=== PATIENT | male | born 1960 | race Caucasian/White ===

== ENCOUNTER 2019-11-04 13:36 | Outpatient (CLI) | payer MEDICARE, MEDICAID, SELFPAY ==
--- NOTE | ~2019-11-04 | CT_ITS ---
EXAMINATION: CT lung screening DATE: 11/04/2019 14:02 INDICATION: Personal history of tobacco dependence, current smoker with 45 pack year history TECHNIQUE: Computed tomography (CT) of the chest was performed without intravenous contrast. The dose -length product (DLP) was 76.03 mGy-cm. Automated exposure control and iterative reconstruction techn [employer] were employed. COMPARISON: None FINDINGS: There is a 5 mm nodule of the right lower lobe on image 92. There is a 4 mm subpleural nodu le of the left lower lobe on image 68. Mild emphysema is noted. The lungs are free of acute opacities . There is no pleural effusion or pneumothorax. No pathologically enlarged thoracic lymph nodes are i dentified. The heart size is normal. Calcified coronary artery atherosclerosis is noted. There are al so coronary artery stents. There is mild thoracic spondylosis. IMPRESSION: 1. Lung-RADS category 2: Benign appearance or behavior. Continue annual screening with noncontrast lo w-dose chest CT in 12 months. Reviewed, dictated and finalized at location A. IMPRESSION: 1. Lung-RADS category 2: Benign appearance or behavior. Continue annual screeni ng with noncontrast low-dose chest CT in 12 months.
== END 2019-11-04 13:37 | disposition home or self-care (01) ==
PROVIDERS: PCP Emergency Medicine; Visit Provider Emergency Medicine
DX: Z12.2 Encounter for screening for malignant neoplasm of respiratory organs (principal); Z87.891 Personal history of nicotine dependence
CPT/HCPCS: G0297

== ENCOUNTER 2020-04-16 12:26 | Outpatient (CLI) | payer MEDICARE, MEDICAID, SELFPAY ==
--- NOTE | 2020-04-16 15:00 | NEURO_ITS ---
Impression: # Known diabetic complains of hand weakness. # Neuropathy of axonal type. 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 # Abnormal needle/EMG exam. Nerve Conduction Studies Anti Sensory Summary Table Stim Site NR Peak (ms) P-T Amp (?V) Site1 Site2 Delta-P (ms) Dist (cm) Sinan (m/s) Left Median Anti Sensory (2-3nd Digit) Wrist 4.7 23.9 Wrist 2-3nd Digit 4.7 14.0 30 Wrist 5.1 33.2 Wrist 2-3nd Digit 4.7 14.0 30 Right Median Anti Sensory (2-3nd Digit) Wrist 5.9 7.8 Wrist 2-3nd Digit 5.9 14.0 24 Wrist 5.0 12.4 Wrist 2-3nd Digit 5.9 14.0 24 Left Radial Anti Sensory (Base 1st Digit) Wrist 4.2 15.5 Wrist Base 1st Digit 4.2 0.0 Right Radial Anti Sensory (Base 1st Digit) NO RESPONSE Wrist NR Wrist Base 1st Digit 0.0 Left Ulnar Anti Sensory (5th Digit) Wrist 3.0 9.8 Wrist 5th Digit 3.0 14.0 47 Right Ulnar Anti Sensory (5th Digit) NO RESPONSE Wrist NR Wrist 5th Digit 14.0 Motor Summary Table Stim Site NR Onset (ms) O-P Amp (mV) Site1 Site2 Delta-0 (ms) Dist (cm) Sinan (m/s) Left Median Motor (Abd Poll Brev) Wrist 4.6 3.8 Elbow Wrist 6.4 29.0 45 Elbow 11.0 3.3 Right Median Motor (Abd Poll Brev) Wrist 4.8 3.6 Elbow Wrist 5.8 30.0 52 Elbow 10.6 3.6 Left Ulnar Motor (Abd Dig Minimi) Wrist 4.5 0.3 A Elbow Wrist 7.5 30.0 40 A Elbow 12.0 0.2 Right Ulnar Motor (Abd Dig Minimi) Wrist 4.8 0.8 A Elbow Wrist 10.1 30.0 30 A Elbow 14.9 0.4 F Wave Studies NR F-Lat (ms) L-R F-Lat (ms) Left Median (Mrkrs) (Abd Poll Brev) 30.98 0.71 Right Median (Mrkrs) (Abd Poll Brev) 31.69 0.71 Left Ulnar (Mrkrs) (Abd Dig Min) 26.49 0.00 Right Ulnar (Mrkrs) (Abd Dig Min) 26.49 0.00 EMG Side Muscle Nerve Root Ins Act Fibs Amp Dur Recrt Comment Right 1stDorInt Ulnar C8-T1 Nml 2+ Decr >12ms Reduced Right Ext Indicis Radial (Post Int) C7-8 Nml Nml Nml Nml Nml Right Ext Digitorum Radial (Post Int) C7-8 Nml Nml Nml Nml Nml Right BrachioRad Radial C5-6 Nml Nml Nml Nml Nml Right PronatorTeres Median C6-7 Nml Nml Nml Nml Nml Right Abd Poll Brev Median C8-T1 Nml Nml Nml Nml Nml Left 1stDorInt Ulnar C8-T1 Nml 2+ Decr >12ms Reduced Left Ext Indicis Radial (Post Int) C7-8 Nml Nml Nml Nml Nml Left Ext Digitorum Radial (Post Int) C7-8 Nml Nml Nml Nml Nml Left BrachioRad Radial C5-6 Nml Nml Nml Nml Nml Left PronatorTeres Median C6-7 Nml Nml Nml Nml Nml Left Abd Poll Brev Median C8-T1 Nml Nml Nml Nml Nml Right ABD Dig Min Ulnar C8-T1 Nml 2+ Decr >12ms Reduced Left ABD Dig Min Ulnar C8-T1 Nml 2+ Decr >12ms Reduced MTDD
== END 2020-04-16 12:27 | disposition home or self-care (01) ==
PROVIDERS: PCP Emergency Medicine; Visit Provider Psychiatry & Neurology Neurology
DX: G62.9 Polyneuropathy, unspecified (principal)
CPT/HCPCS: 95886; 95911

== ENCOUNTER 2020-12-02 10:26 | Outpatient (CLI) | payer MEDICARE, MEDICAID, SELFPAY ==
[2020-12-02 16:59] LABS: Creatinine Urine 73.2 mg/dL
[2020-12-02 17:01] LABS: Alanine Aminotransferase 11 U/L (4-50); Alkaline Phosphatase 89 U/L (38-126); Anion Gap 10 mmol/L (8-16); Aspartate Amino Transferase 21 U/L (17-59); Bilirubin,Total 0.5 mg/dL (0.2-1.3); Blood Urea Nitrogen 22 mg/dL (9-20); Calcium 9.6 mg/dL (8.4-10.2); Carbon Dioxide 27 mmol/L (22-30); Chloride 103 mmol/L (98-107); Estimated Glomerular Filt Rate 52; Glucose 130 mg/dL (65-110); Potassium 4.6 mmol/L (3.4-5.0); Sodium 140 mmol/L (137-145)
[2020-12-02 17:16] LABS: Microalbumin Urine Random < 6.0 mg/L (0-16.7)
[2020-12-02 17:17] LABS: MALB Creatinine Ratio < 8.2 mg/g (0-30)
[2020-12-02 17:19] LABS: Free T4 Free Thyroxine 1.45 ng/mL (0.78-2.19)
== END 2020-12-02 10:27 | disposition home or self-care (01) ==
LOC: ANHWCLAB 10:30
PROVIDERS: PCP Emergency Medicine; Visit Provider Internal Medicine Endocrinology, Diabetes & Metabolism
DX: E10.42 Type 1 diabetes mellitus with diabetic polyneuropathy (principal)
CPT/HCPCS: 36415; 80053; 82043; 84439; 84443

== ENCOUNTER → 2021-03-06 02:00 | Outpatient (CLI) | payer MEDICARE, MEDICAID, SELFPAY ==
[2021-03-06 18:07] LABS: SARS-CoV-2 RNA PCR Negative
== END ==
PROVIDERS: PCP Emergency Medicine; Visit Provider Internal Medicine Gastroenterology
DX: Z01.812 Encounter for preprocedural laboratory examination (principal); Z20.822 Contact with and (suspected) exposure to COVID-19
CPT/HCPCS: C9803; U0003; U0005

== ENCOUNTER 2021-03-10 00:33 | Day surgery (SDC) | payer MEDICARE, MEDICAID, SELFPAY ==
[2021-02-19 11:50] VITALS: BMI 21.2
--- NOTE | 2021-03-09 10:32 | WPDANESEPPF ---
Anes - Initial Pre Proc Eval Procedure: Operation Date: 03/10/21 08:30 Proposed Procedures p Esophagogastroduodenoscopy - Estiven Patel MD Date/Time: 03/09/21 10:32 Surgeon: Estiven Patel MD Pre Op Diagnosis: owens's esophagus, GERD Patient Data Age: 60 Gender: M Height: 1.78 m Weight: 67 kg Allergies Allergy/AdvReac Type Severity Reaction Status Date / Time morphine Allergy Mild hives Verified 03/10/21 07:41 codeine Allergy Unknown hives Verified 03/10/21 07:41 Home Medications Medication Instructions Recorded Confirmed Type blood-glucose meter,continuous #1 each 09/23/19 02/03/21 History blood-glucose sensor #9 each 01/27/20 02/03/21 Rx Contour Next Test Strips #400 ea NS 05/04/20 02/03/21 Rx pen needle, diabetic 31 gauge x #500 ea 06/08/20 02/03/21 Rx 5/16 insulin aspart U-100 100 unit/mL 2 - 8 unit SUBCUT .COMPLEX 90 Days 12/24/20 02/19/21 Rx (3 mL) subcutaneous pen #10 syr insulin glargine 100 unit/mL (3 21 unit SUB-Q QAM 90 Days #10 syr 12/24/20 02/19/21 Rx mL) subcutaneous pen lansoprazole 30 mg delayed 30 mg PO BID #60 tablet 02/03/21 02/19/21 Rx release,disintegrating tablet aspirin 81 mg PO DAILY PRN 02/19/21 02/19/21 History hydromorphone [Dilaudid] 4 mg PO BID PRN 03/10/21 03/10/21 History Patient hx anesthesia problems: none Family hx anesthesia problems: none Results Review: All pre-operative results and documents have been reviewed as part of the pre-operative evaluation. COUNTS INCLUDE 234 BEDS AT THE [facility] Past Medical History Medical History (Updated 03/09/21 @ 10:33 by Kapil Uribe DO) Acquired cataract Owens's esophagus Chronic, continuous use of opioids PO dilaudid Diabetes mellitus GERD (gastroesophageal reflux disease) History of heart attack 2004 Tobacco abuse Type 1 diabetes mellitus with diabetic polyneuropathy, with long-term current use of insulin Surgical History Surgical History H/O heart artery stent 2005 History of hernia repair as a baby Family History Family History Father Diabetes mellitus Other Family history of arthritis Family history of congestive heart failure Social History Social History (Updated 02/03/21 @ 13:55 by Brenna Oakley CMA) Smoking packs per day: 1 Smoking cigarettes per day: 20.0 Years smoked: 45 Smoking pack-years: 45.00 Smoking status: Current every day smoker Tobacco type: cigarettes Alcohol intake: never Substance use: current Substance use type: marijuana Last use: 02/19/21 Living arrangements: alone Gender identity (if verbalized by the patient): Male Spiritual care concerns: No Anes - Eval Final PreProcedure Day of Procedure 03/09/21 10:32 Patient weight: normal Heart: regular rate and rhythm Lungs: clear to auscultation and normal air movement Airway: Mallampati scale class II Neurological: alert and oriented Last oral intake: >/= 8 hours ASA classification: III Emergent: no Anesthetic plan: proceed Anesthesia type and monitoring: general GIVS and standard monitoring Results Review: All pre-operative results and documents have been reviewed as part of the pre-operative evaluation. Informed Consent: The patient's anesthetic plan and its attendant risks and benefits were discussed with the patient/family/POA. Questions were solicited and answers provided to the satisfaction of the patient/family/POA.
[2021-03-10 07:43] VITALS: BP 145/79; PULSE 73; RESP 20; TEMP 36.3; O2SAT 99; BMI 21.2
[2021-03-10 07:54] LABS: Glucose Point of Care 245 mg/dl (65-105)
[2021-03-10] MEDS: LACTATED RINGERS 1,000 ML 150 ML IV CONT (08:02)
--- NOTE | 2021-03-10 08:18 | WPDGICN ---
Assessment and Plan Assessment and plan (1) GERD (gastroesophageal reflux disease): Code(s): K21.9 - Gastro-esophageal reflux disease without esophagitis Status: Acute Assessment and Plan: Patient with chronic GE reflux disease appears to be of controlled with lansoprazole 30mg p.o. b.i.d. anticipate keeping this medication long-term along with anti-reflux measures including elevating head of bed at night no late snacks and bland foods. (2) Soria's esophagus: Code(s): K22.70 - Soria's esophagus without dysplasia Status: Acute Assessment and Plan: Patient with previous diagnosis of Soria's esophagus plan is for PPI therapy to continue. Surveillance EGD is anticipated 3 year intervals. (3) Dysphagia: Code(s): R13.10 - Dysphagia, unspecified Status: Acute Assessment and Plan: Patient complains of difficulty swallowing solid foods at present. Plan is for EGD to assess for esophageal narrowing. Further recommendations will be given after endoscopy. (4) Diabetes mellitus: Code(s): E11.9 - Type 2 diabetes mellitus without complications Status: Acute Assessment and Plan: Patient has a longstanding history of diabetes mellitus. He is felt to have diabetic gastroparesis and intermittently has required Reglan. Currently this is stable. Reglan uses only been advised intermittently for brief periods. Currently doing well with softer diet elevating head of bed at night. GI Consult Note Consult date/time: 03/10/21 08:18 HPI: Temo Devine is a 60 year old male Presents for EGD. Patient has a longstanding history of GE reflux disease. He has been maintained on lansoprazole 30mg p.o. b.i.d.. Recently has had some improvement of heartburn or regurgitation. He does complain of difficulty swallowing. Solid foods will catch in the mid substernal portion of the chest. Patient additionally has a history of diabetes and intermittently has been treated for diabetic gastroparesis. He no longer takes Reglan but is use this intermittently in the past. He patient currently denies any bleeding. He denies any weight loss. Family history is noncontributory. Previous endoscopies have suggested he has underlying Soria's esophagus for this reason follow-up EGD is been anticipated at least at 3 year intervals. Review of Systems Review of Systems: All systems reviewed & are unremarkable except as noted in HPI and below PMFSH Past Medical History Medical History (Updated 03/10/21 @ 08:20 by Estiven Patel MD) Acquired cataract Soria's esophagus Chronic, continuous use of opioids PO dilaudid Diabetes mellitus GERD (gastroesophageal reflux disease) History of heart attack 2004 Tobacco abuse Type 1 diabetes mellitus with diabetic polyneuropathy, with long-term current use of insulin Surgical History Surgical History (Reviewed 02/03/21 @ 13:54 by Brenna Oakley [facility]) H/O heart artery stent 2004 History of hernia repair as a baby Family History Family History Father Diabetes mellitus Other Family history of arthritis Family history of congestive heart failure Social History Social History (Updated 02/03/21 @ 13:55 by Brenna Oakley [facility]) Smoking packs per day: 1 Smoking cigarettes per day: 20.0 Years smoked: 45 Smoking pack-years: 45.00 Smoking status: Current every day smoker Tobacco type: cigarettes Alcohol intake: never Substance use: current Substance use type: marijuana Last use: 02/19/21 Living arrangements: alone Gender identity (if verbalized by the patient): Male Spiritual care concerns: No Meds Home Medications and Allergies Home Medications Medication Instructions Recorded Confirmed Type blood-glucose meter,continuous #1 each 09/23/19 02/03/21 History blood-glucose sensor #9 each 01/27/20 02/03/21 Rx Contour Ne
[2021-03-10 08:50] VITALS: BP 92/36; PULSE 60; RESP 20; O2SAT 96
[2021-03-10 09:00] VITALS: BP 118/49; PULSE 64; RESP 18; O2SAT 98
[2021-03-10 09:07] LABS: Glucose Point of Care 234 mg/dl (65-105)
[2021-03-10 09:10] VITALS: BP 122/76; PULSE 68; RESP 20; O2SAT 98
== END 2021-03-10 09:30 | disposition home or self-care (01) ==
PROVIDERS: PCP Emergency Medicine; Visit Provider Internal Medicine Gastroenterology
PROC: 0DJ08ZZ Inspection of Upper Intestinal Tract, Via Natural or Artificial Opening Endoscopic (ICD-10-PCS; CPT 43235; principal; 2021-03-10 08:30)
DX: R13.19 Other dysphagia (principal); K31.84 Gastroparesis; K22.70 Barrett's esophagus without dysplasia; K22.2 Esophageal obstruction; K21.00 Gastro-esophageal reflux disease with esophagitis, without bleeding; R13.10 Dysphagia, unspecified; I25.2 Old myocardial infarction; E10.42 Type 1 diabetes mellitus with diabetic polyneuropathy; Z79.4 Long term (current) use of insulin; F17.210 Nicotine dependence, cigarettes, uncomplicated; F12.90 Cannabis use, unspecified, uncomplicated; Z79.82 Long term (current) use of aspirin
CPT/HCPCS: 43239; 43450; 82948; 88305; C9803; J2704; J7120; U0003; U0005

== ENCOUNTER → 2021-04-21 02:38 | Outpatient (CLI) | payer OTHER, SELFPAY ==
[2021-04-21 20:26] LABS: SARS-CoV-2 RNA PCR Negative
== END ==
PROVIDERS: PCP Emergency Medicine; Visit Provider Emergency Medicine
DX: B34.9 Viral infection, unspecified (principal); Z20.822 Contact with and (suspected) exposure to COVID-19
CPT/HCPCS: C9803; U0003; U0005

== ENCOUNTER 2021-05-18 12:09 | Outpatient (CLI) | payer MEDICARE, SELFPAY ==
--- NOTE | ~2021-05-18 | MR_ITS ---
EXAMINATION: MR lumbar spine wo con EXAM DATE: 05/18/2021 13:33 INDICATION: Lumbar radicular pain, low back pain. TECHNIQUE: Multi-sequential, multiplanar MR images of the lumbar spine were obtained without contrast . Sagittal T1, T2, T2 fat saturation images. Axial T2 weighted images. There is no prior study for comparison. FINDINGS: Chronic loss of the L4 and L5 vertebral body heights without retropulsion. There is 2 mm re trolisthesis L3 on L4, 3 mm retrolisthesis L4 on L5 and L5 on S1. The conus medullaris terminates at the T12-L1 level and has normal signal intensity and morphology. There are no suspicious marrow signa l abnormalities. Paraspinal soft tissue is unremarkable. Mild loss of the L1-2 and L3-4 disc height. Level by level evaluation: T12-L1: Disc does not extend beyond the endplate margin. Facet arthropathy: Mild. Neural foraminal stenosis: No stenosis. Central canal stenosis: No stenosis. L1-L2: There is a mild to moderate diffuse disc bulge. Facet arthropathy: Mild. Neural foraminal stenosis: No stenosis. Central canal stenosis: Mild. L2-L3: There is a mild diffuse disc bulge. Facet arthropathy: Mild. Neural foraminal stenosis: No stenosis. Central canal stenosis: No stenosis. L3-L4: There is a moderate diffuse disc bulge. Facet arthropathy: Mild to moderate. Neural foraminal stenosis: Minimal bilateral. Central canal stenosis: Mild to moderate. L4-L5: There is a moderate diffuse disc bulge. Facet arthropathy: Mild. Neural foraminal stenosis: Mild bilateral. Central canal stenosis: Mild to moderate. L5-S1: There is a mild diffuse disc bulge. Facet arthropathy: Mild. Neural foraminal stenosis: Mild to moderate bilateral. Central canal stenosis: No stenosis. IMPRESSION: 1. Chronic mild L4 compression fracture, mild to moderate L5 burst fractures without retropulsion. 2. Mild to moderate lumbar spondylosis. Reviewed, dictated and finalized at location A. ANICAL SYSTEMS ENGINEER IMPRESSION: 1. Chronic mild L4 compression fracture, mild to moderate L5 burst fractures w ithout retropulsion. 2. Mild to moderate lumbar spondylosis.
--- NOTE | ~2021-05-18 | MR_ITS ---
EXAMINATION: MR cervical spine wo con EXAM DATE: 05/18/2021 13:21 INDICATION: Cervical radicular pain. Bilateral arm pain. TECHNIQUE: Multi-sequential, multiplanar MR images of the cervical spine were obtained without contra st. Axial T2, axial T2 MERGE sequence. Sagittal T1, T2, T2 fat saturation images also obtained. Th ere is no prior study for comparison. FINDINGS: There is incidental mass in the right parotid gland measuring 1.2 x 2.2 cm; ENT consult rec ommended for histologic correlation. This could be a pleomorphic adenoma but malignant histology also possible. No evidence of cervical lymphadenopathy. There is moderate to severe disc disease at C5-6, 6-7 and 7-T1, moderate at C4-5. There is 2 mm anter olisthesis C7 on T1. The vertebral body and disc heights are otherwise well maintained. The spinal co rd signal intensity and intrinsic morphology is normal. Cervicomedullary junction is normal in appear ance. Vertebral body edema at the C4 and C5 vertebral bodies. Level by level evaluation: C2-C3: Disc does not extend beyond the endplate margin. Uncovertebral joint arthropathy: Mild left. Facet joint arthropathy: Moderate right, mild to moderate left. Neural foraminal stenosis: No stenosis. Central canal stenosis: No stenosis. C3-C4: There is a minimal diffuse disc bulge. Uncovertebral joint arthropathy: Mild to moderate left, mild right. Facet joint arthropathy: Moderate left, mild to moderate right. Neural foraminal stenosis: Moderate left, mild right. Central canal stenosis: Minimal. C4-C5: There is a mild diffuse disc bulge. Uncovertebral joint arthropathy: Moderate bilateral. Facet joint arthropathy: Moderate to severe left, moderate right. Neural foraminal stenosis: Moderate to severe left, moderate right. Central canal stenosis: Mild. C5-C6: There is a moderate diffuse disc bulge. Uncovertebral joint arthropathy: Moderate to severe bilateral. Facet joint arthropathy: Moderate to severe bilateral. Neural foraminal stenosis: Severe right, moderate to severe left. Central canal stenosis: Mild to moderate. C6-C7: There is a mild diffuse disc bulge. Uncovertebral joint arthropathy: Moderate bilateral. Facet joint arthropathy: Moderate to severe bilateral. Neural foraminal stenosis: Moderate to severe right, moderate left. Central canal stenosis: Mild. C7-T1: There is a mild diffuse disc bulge. Uncovertebral joint arthropathy: Moderate bilateral. Facet joint arthropathy: Severe bilateral. Neural foraminal stenosis: Moderate bilateral. Central canal stenosis: Minimal. IMPRESSION: 1. Incidental right parotid mass: Recommend ENT consult. 2. Advanced cervical spondylosis, significant mid cervical neural foraminal stenosis. Reviewed, dictated and finalized at location A. MBLING MOTOR BUILDER IMPRESSION: 1. Incidental right parotid mass: Recommend ENT consult. 2. Advanced cervical spondylosis, significant mid cervical neural foraminal st enosis.
== END 2021-05-18 12:10 ==
PROVIDERS: PCP Student in an Organized Health Care Education/Training Program
DX: M54.12 Radiculopathy, cervical region (principal); M48.56XA Collapsed vertebra, not elsewhere classified, lumbar region, initial encounter for fracture; S32.051A Stable burst fracture of fifth lumbar vertebra, initial encounter for closed fracture; M47.816 Spondylosis without myelopathy or radiculopathy, lumbar region; D11.0 Benign neoplasm of parotid gland; M47.812 Spondylosis without myelopathy or radiculopathy, cervical region; M48.02 Spinal stenosis, cervical region
CPT/HCPCS: 72141; 72148

== ENCOUNTER → 2021-12-16 16:02 | Outpatient (CLI) | payer MEDICARE, SELFPAY ==
--- NOTE | ~2021-12-16 | CT_ITS ---
EXAMINATION:CT lung screening DATE: 12/16/2021 16:15 INDICATION: Personal history of nicotine dependence. Current smoker with 48 pack year history. TECHNIQUE: Computed tomography (CT) of the chest was performed without intravenous contrast. Automate d exposure control and iterative reconstruction technique were employed. The dose-length product (DLP ) was 161.25 mGy-cm. COMPARISON: Chest CT 11/04/2019 FINDINGS: There is mild emphysema. There is mild scarring at the lung apices. There is mild atelectas is bilaterally. There are stable 5 mm and 3 mm nodules in left lower lobe. There is a stable 4 mm nod ule at minor fissure. There is a stable 4 mm nodule in left lower lobe. No pleural effusion. The hear t size is normal. There are coronary artery calcifications. No pericardial effusion. There is bilater al gynecomastia. There is severe thoracic spondylosis. There is severe cervical spondylosis. IMPRESSION: 1. Lung-RADS category 2: Benign appearance or behavior. Continue annual screening with noncontrast lo w-dose chest CT in 12 months. Reviewed, dictated and finalized at location A. IMPRESSION: 1. Lung-RADS category 2: Benign appearance or behavior. Continue annual screeni ng with noncontrast low-dose chest CT in 12 months.
== END ==
PROVIDERS: PCP Student in an Organized Health Care Education/Training Program; Visit Provider Student in an Organized Health Care Education/Training Program
DX: F17.210 Nicotine dependence, cigarettes, uncomplicated (principal); Z12.2 Encounter for screening for malignant neoplasm of respiratory organs
CPT/HCPCS: 71271

== ENCOUNTER 2022-01-29 10:45 | Emergency (ER) | payer MEDICARE, SELFPAY ==
--- NOTE | ~2022-01-29 | US_ITS ---
EXAMINATION: US arterial duplex [facility] DATE: 01/29/2022 11:51 INDICATION: Postprocedural hemorrhage of a circulatory organ or structure following a cardiac cath, b ypass, or other circulatory system procedure. TECHNIQUE: Multiple grayscale and Doppler ultrasound images of the abdomen were obtained. COMPARISON: None FINDINGS: Left common femoral vein and femoral vein are patent. There is no significant stenosis of l eft common femoral artery, superficial femoral artery, or profunda femoral artery. IMPRESSION: 1. No pseudoaneurysm. Reviewed, dictated and finalized at location A. IMPRESSION: 1. No pseudoaneurysm.
[2022-01-29 10:51] VITALS: BP 164/65; PULSE 86; RESP 14; TEMP 36.3; O2SAT 98
[2022-01-29 11:01] VITALS: BP 135/68
[2022-01-29 11:16] VITALS: BP 153/65
--- NOTE | 2022-01-29 11:25 | PC.NURSE ---
Patient taken to ultrasound at this time.
--- NOTE | 2022-01-29 11:47 | ED.GENADULT ---
HPI - General Adult General Chief complaint: Unspecified Stated complaint: L groin swelling Time Seen by Provider: 01/29/22 11:06 Source: patient and RN notes reviewed Mode of arrival: EMS Limitations: no limitations History of Present Illness HPI narrative: This is a 61 year old male who presents for evaluation of left groin bruising and swelling. He states he had an emergent cardiac catheterization for evaluation acute blockage to right lower extremity. He states catheterization performed through left groin to put a stent in right leg. He states this morning he was twisting and he noticed burning pain to his left groin. He also noticed groin swelling and bruising. He denies any other complaints. Related Data Home Medications Medication Instructions Recorded Confirmed blood-glucose meter,continuous #1 ea 09/23/19 01/10/22 ([employer] G6 Plant Reliability Engineer misc) oxycodone 5 mg capsule 5 mg PO Q8H PRN 07/07/21 01/10/22 Allergies Allergy/AdvReac Type Severity Reaction Status Date / Time morphine Allergy Mild hives Verified 01/10/22 14:01 codeine Allergy Unknown hives Verified 01/10/22 14:01 Review of Systems Review of Systems: CONSTITUTIONAL: Denies fever, chills, or sweats. EYES: Denies visual changes, redness, or discharge. ENT: Denies rhinorrhea, congestion, sore throat, or otalgia. CARDIOVASCULAR: Denies chest pain, palpitations, or edema. RESPIRATORY: Denies cough or dyspnea. GASTROINTESTINAL: Denies abdominal pain, nausea, vomiting, or diarrhea. GENITOURINARY: Denies dysuria or hematuria. SKIN: Denies rash or itching. MUSCULOSKELETAL: Denies back pain, joint pain, or myalgia. NEUROLOGIC: Denies headache, numbness, or weakness. PSYCHIATRIC: Denies anxiety or depression. [facility] Past Medical History Medical History (Updated 01/29/22 @ 13:10 by Marleen Valdez MD) Acquired cataract Soria's esophagus Chronic, continuous use of opioids PO dilaudid Diabetic gastroparesis GERD (gastroesophageal reflux disease) History of heart attack 2004 Neuropathy Peripheral vascular disease Tobacco abuse Type 1 diabetes mellitus with diabetic polyneuropathy, with long-term current use of insulin Surgical History Surgical History (Updated 01/29/22 @ 13:10 by Marleen Valdez MD) H/O heart artery stent 2004 History of eye surgery right eye for broken blood vessels History of hernia repair as a baby Family History Family History Father Diabetes mellitus Other Family history of arthritis Family history of congestive heart failure Social History Social History Smoking packs per day: 1.5 Smoking cigarettes per day: 30.0 Years smoked: 45 Smoking pack-years: 67.50 Smoking status: Current every day smoker Tobacco type: cigarettes Additional smoking assessment comments: 1 pack or more per day Alcohol intake: never Substance use: current Substance use type: marijuana Gender identity (if verbalized by the patient): Male Spiritual care concerns: No Exam Const: General: cooperative and alert Nutritional Appearance: average body habitus Orientation/consciousness: patient oriented x3 Limitations: no limitations HENMT: Head: normal to inspection and normocephalic Ears: hearing grossly normal bilaterally Face and sinus: face symmetric Mouth: Yes Normal oral and palatal mucosa present, Yes lip normal, Yes oropharynx normal and Yes moist mucous membranes Throat: posterior oropharynx normal Eyes: General: appearance normal, both eyes and all related structures EOM: EOMs intact bilaterally Resp: Effort & Inspection: normal respiratory effort Cardio: Peripheral pulses: posterior tibial pulses present bilateral dopplerable and dorsalis pedis present bilateral dopplerable Skin: Other: left groin with 3 cm incision that is intact, small surrounding area of ecchymos
[2022-01-29 12:23] LABS: Basophils Absolute Auto 0.1 K/mm3 (0.0-0.1); Basophils Percent Auto 0.6 % (0.2-1.2); Eosinophils Absolute Auto 0.1 K/mm3 (0-0.3); Eosinophils Percent Auto 0.3 % (0-4.4); Hematocrit 36.9 % (42.0-52.0); Hemoglobin 11.8 g/dL (14.0-18.0); Immature Granulocyte Absolute 0.09 K/mm3 (0.00-0.031); Immature Granulocyte Percent A 0.5 % (0-0.5); Lymphocytes Absolute Auto 2.31 K/mm3 (0.9-3.2); Lymphocytes Percent Auto 13.4 % (18.3-44.2); Mean Corpuscular Hemoglobin 30.8 pg (26-34); Mean Corpuscular Volume 96.3 fl (80-100); Mean Platelet Volume 10.7 fl (7.4-10.4); Monocytes Absolute Auto 1.1 K/mm3 (0.1-0.6); Monocytes Percent Auto 6.2 % (2.6-8.5); Neutrophils Absolute Auto 13.7 K/mm3 (1.3-6.7); Platelet Count Result 367 k/mm3 (150-375); Red Blood Count 3.83 M/mm3 (4.6-6.20); Red Cell Distribution Width 14.6 % (11.5-14.5); White Blood Count 17.3 K/mm3 (4.5-10.0)
[2022-01-29 12:33] LABS: Alanine Aminotransferase 12 U/L (6-50); Albumin Level 3.5 g/dL (3.5-5.1); Alkaline Phosphatase 65 U/L (38-126); Anion Gap 13 mmol/L (8-16); Aspartate Amino Transferase 19 U/L (17-59); Bilirubin,Total 0.7 mg/dL (0.2-1.3); Blood Urea Nitrogen 24 mg/dL (9-20); Calcium 8.3 mg/dL (8.4-10.2); Carbon Dioxide 24 mmol/L (22-30); Chloride 100 mmol/L (98-107); Estimated CRCL calculation 51 ml/min; Estimated Glomerular Filt Rate 56; Glucose 259 mg/dL (65-110); Potassium 4.1 mmol/L (3.4-5.0); Sodium 137 mmol/L (137-145)
[2022-01-29 12:34] LABS: Prothrombin Time 12.7 Seconds (11.1-14.7)
[2022-01-29 12:35] LABS: Partial Thromboplastin Time 36.1 SECONDS (22.3-36.8)
[2022-01-29 13:33] VITALS: BP 161/70; PULSE 87; RESP 18; O2SAT 98
== END 2022-01-29 13:35 | disposition home or self-care (01) ==
PROVIDERS: Emergency Provider General Practice; PCP Student in an Organized Health Care Education/Training Program
DX: L76.82 Other postprocedural complications of skin and subcutaneous tissue (principal); M79.89 Other specified soft tissue disorders; Y84.0 Cardiac catheterization as the cause of abnormal reaction of the patient, or of later complication, without mention of misadventure at the time of the procedure; E10.42 Type 1 diabetes mellitus with diabetic polyneuropathy; E10.51 Type 1 diabetes mellitus with diabetic peripheral angiopathy without gangrene; E10.43 Type 1 diabetes mellitus with diabetic autonomic (poly)neuropathy; K31.84 Gastroparesis; K21.9 Gastro-esophageal reflux disease without esophagitis; I25.2 Old myocardial infarction; Z95.5 Presence of coronary angioplasty implant and graft; Z79.891 Long term (current) use of opiate analgesic; F17.210 Nicotine dependence, cigarettes, uncomplicated; F12.90 Cannabis use, unspecified, uncomplicated; Z79.4 Long term (current) use of insulin; Z95.820 Peripheral vascular angioplasty status with implants and grafts
CPT/HCPCS: 36415; 80053; 85025; 85610; 85730; 93926; 99284

== ENCOUNTER 2023-08-22 12:38 | Outpatient (CLI) | payer MEDICARE, MEDICAID, SELFPAY ==
--- NOTE | ~2023-08-22 | CT_ITS ---
CT Scan of the Chest without Contrast: Clinical Indication: Lung cancer screening, nicotine dependence Technique: Contiguous sections were acquired throughout the chest without intravenous contrast. Dose reduction technique was used on this scan by utilizing automated exposure control and iterative recon struction technique. The dose-length product (DLP) was 73.24 mGy-cm. Findings: There is no evidence of any significant mediastinal, hilar or axillary lymphadenopathy. The mediastin al soft tissues appear normal. There is no evidence of pleural or pericardial effusion. Stable 4 mm right lower lobe pulmonary nodule adjacent to the fissure. 4 mm pleural-based left basila r pulmonary nodule present. Additional 5 mm probable granuloma present left lower lobe. Images through the upper abdomen reveal 8 mm nonobstructing left renal stone. Impression: Lung RADS 2: Benign appearance. 12 month follow-up screening CT advised. Reviewed, dictated and finalized at [facility]. Impression: Lung RADS 2: Benign appearance. 12 month follow-up screening CT advised.
== END 2023-08-22 12:39 | disposition home or self-care (01) ==
LOC: ANHIMG 12:40
PROVIDERS: PCP Student in an Organized Health Care Education/Training Program; Visit Provider Student in an Organized Health Care Education/Training Program
DX: Z12.2 Encounter for screening for malignant neoplasm of respiratory organs (principal); R22.1 Localized swelling, mass and lump, neck; F17.210 Nicotine dependence, cigarettes, uncomplicated
CPT/HCPCS: 71271

== ENCOUNTER 2023-08-22 13:10 | Outpatient (CLI) | payer MEDICARE, MEDICAID, SELFPAY ==
--- NOTE | 2023-08-22 13:30 | ECG_ITS ---
Measurements Intervals [place] Rate: 71 P: 69 AR: 137 QRS: 4 QRSD: 81 T: 62 QT: 389 QTc: 412 Interpretive Statements SINUS RHYTHM WITH OCCASIONAL VENTRICULAR COMPLEXES POSSIBLE LEFT ATRIAL ENLARGEMENT [-0.1mV P WAVE IN V1/V2] ANTERIOR MYOCARDIAL INFARCTION [40+ ms Q WAVE AND OR ST/T ABNORMALITY IN V3/V4], OF INDETERMINATE AGE ABNORMAL ECG SEE SCANNED COPY FOR SIGNATURE MTDD
[2023-08-22 14:09] LABS: Anion Gap 6 mmol/L (4-12); Blood Urea Nitrogen 34 mg/dL (9-20); Calcium 8.7 mg/dL (8.4-10.2); Carbon Dioxide 25 mmol/L (22-30); Chloride 105 mmol/L (98-107); Estimated Glomerular Filt Rate 56; Glucose 217 mg/dL (65-110); Potassium 4.4 mmol/L (3.4-5.0); Sodium 136 mmol/L (137-145)
[2023-08-22 14:10] LABS: INR 0.9; Prothrombin Time 12.7 Seconds (11.1-14.7)
[2023-08-22 14:11] LABS: Partial Thromboplastin Time 37.2 Seconds (22.3-36.8)
== END 2023-08-22 13:11 | disposition home or self-care (01) ==
LOC: ANHSURGERY 13:14
PROVIDERS: Anesthesiology; PCP Student in an Organized Health Care Education/Training Program; Visit Provider Surgery
DX: Z01.818 Encounter for other preprocedural examination (principal); N18.9 Chronic kidney disease, unspecified; E10.42 Type 1 diabetes mellitus with diabetic polyneuropathy; K40.90 Unilateral inguinal hernia, without obstruction or gangrene, not specified as recurrent; K40.91 Unilateral inguinal hernia, without obstruction or gangrene, recurrent
CPT/HCPCS: 36415; 71271; 80048; 85610; 85730; 86850; 86900; 86901; 93005

== ENCOUNTER 2023-08-30 00:43 | Day surgery (SDC) | payer MEDICARE, MEDICAID, SELFPAY ==
[2023-08-22 11:15] VITALS: BMI 20.5
--- NOTE | 2023-08-22 11:27 | PC.NURSE ---
Report to the Outpatient Waiting Room, entrance under the green pavilion located off [facility], at time 9:30 on date 08/30/23. Planned Procedure Time: 11:30. Time changes happen often and if your time is changed the preop area will call you the afternoon before. - You and your visitor will be asked to self-screen and do not enter if you have any COVID symptoms. - A mask is optional within the hospital at this time. Patients may have clear liquids (water, carbonated beverages, clear teas, apple juice) until 3 hours prior to surgery (8:30) with a maximum of 20 ounces. - No food from midnight until time of surgery Take the following medications with a SIP of water the morning of surgery: OXYCODONE IF NEEDED, 1/2 DOSE AM INSULIN DO NOT STOP ANY OF YOUR OTHER PRESCRIPTION MEDICATIONS PRIOR TO SURGERY ?EXCEPT THE FOLLOWING Medications to discontinue per physician: PLAVIX Date to take last dose: 08/31/23 (PER DR/PT) Please no make-up, nail solomon islander, hairspray, perfume, deodorant, or body powder the day of surgery. No jewelry (including any body piercings) or valuables the day of surgery, leave them at home. Please take a shower or bath the night before, or the morning of, surgery with an antibacterial soap. Wear comfortable, loose fitting clothing. - Jewelry must be removed prior to entering the operating room. Rings and piercings that are not removed may be cut off. - The hospital will not accept responsibility for valuables. - Please leave all valuables, including medications, at home the day of surgery. If you are going home after surgery, a licensed city driver must drive you home. - NO public transportation without another adult if you receive anesthesia. - We recommend that an adult stay with you for 24 hours following discharge. - We also recommend that you do not drive, make important decision, drink alcoholic beverages, or take any drugs that were not prescribed by your health care provider for at least 24 hours after your discharge time. Follow any additional instructions given to you from your surgeon. If you or anyone in your household have experienced Covid symptoms in the past week, please notify your surgeon or the nurse liaison at the phone number below for possible testing. Telephone instructions given to PT - SAMEER and asked if any additional questions and then verbalized understanding. Patient advised to call surgeon office or pre surgery nurse liaison [phone] if any additional questions.
[2023-08-30] VITALS (21 sets, daily range): BP systolic 136–207; BP diastolic 56–94; PULSE 64–97; RESP 10–23; TEMP 36.1–37.1; O2SAT 95–100; BMI 21.1
[2023-08-30] MEDS: KETOROLAC 15 MG/ML VIAL (*BKC) IV PUSH (10:23)
--- NOTE | 2023-08-30 10:23 | PM.IMHP ---
H&P: HPI History of Present Illness Date/Time: 08/30/23 10:23 Chief Complaint: Left inguinal hernia and recurrent right inguinal hernia Narrative: This is a 62-year-old man who presents for bilateral inguinal hernia repair. He has a history of right inguinal hernia repair as a child. He was recently found to have bilateral inguinal hernias on exam. He reports no significant changes since last seen in the office. Review of Systems Review of Systems: All systems reviewed & are unremarkable except as noted in HPI and below Eyes: Eyes: Denies change in vision ENT: Denies hearing loss, Denies neck pain and Denies sore throat Cardiovascular: Cardiovascular: Denies chest pain and Denies dyspnea Respiratory: Respiratory: Denies cough, Denies dyspnea and Denies wheezing Genitourinary: Genitourinary: Denies hematuria and Denies dysuria Musculoskeletal: Musculoskeletal: Denies arthralgias, Denies joint swelling and Denies neck pain Allergic/Immunologic: Allergic/Immunologic: Denies wheezing PMFSH Past Medical History Medical History Acquired cataract Soria's esophagus Chest mass Chronic, continuous use of opioids PO dilaudid Diabetic gastroparesis Dysphagia GERD (gastroesophageal reflux disease) History of heart attack 2004 Neuropathy PAD (peripheral artery disease) Peripheral vascular disease Tobacco abuse Type 1 diabetes mellitus with diabetic polyneuropathy, with long-term current use of insulin Surgical History Surgical History H/O heart artery stent 2004 History of eye surgery right eye for broken blood vessels History of hernia repair as a baby Family History Family History Father Diabetes mellitus Other Family history of arthritis Family history of congestive heart failure Social History Social History Smoking packs per day: 1 Smoking cigarettes per day: 20.0 Years smoked: 50 Smoking pack-years: 50.00 Smoking status: Current every day smoker Tobacco type: cigarettes Additional smoking assessment comments: 1 pack or more per day Alcohol intake: never Substance use: current Substance use type: marijuana Do You Feel Safe in your Home?: Yes Lack of Transportation: No Lack of Food: Sometimes True Current Housing: I Have Housing Concerned About Future Housing: No Difficulty Paying Gas/Electric Bills: YES Difficulty Paying for Meds: No Currently Unemployed: No Education: High School Diploma/GED Difficulty w/ Childcare or Family Care: No Living arrangements: alone Occupation/Education: unemployed Gender identity (if verbalized by the patient): Male Spiritual care concerns: No Meds Home Medications and Allergies Home Medications Medication Instructions Recorded Confirmed Type pen needle, diabetic 31 gauge x #500 ea 06/08/20 08/18/23 Rx 5/16 oxycodone 5 mg capsule 5 mg PO Q8H PRN Pain 07/07/21 08/22/23 History clopidogrel 75 mg tablet (Plavix) 75 mg PO DAILY 06/30/22 08/22/23 History glucagon 3 mg/actuation nasal spray 3 mg intranasal ONCE #2 ea 01/09/23 08/22/23 Rx pantoprazole 40 mg tablet,delayed 40 mg PO BID #180 tabs 01/19/23 08/22/23 Rx release insulin glargine 100 unit/mL (3 See Rx Instructions .Route 07/03/23 08/22/23 Rx mL) subcutaneous pen (Lantus .COMPLEX #18 mL Solostar U-100 Insulin) blood-glucose sensor (FunnelFire G7 #9 ea 07/17/23 08/18/23 Rx Sensor device) insulin aspart U-100 100 unit/mL 15 unit (0.15 mL) subcut TID #45 mL 07/17/23 08/22/23 Rx subcutaneous cartridge (Novolog PenFill U-100 Insulin aspart) insulin pen,reusable,BT,aspart #1 ea 07/17/23 08/18/23 Rx (InPen (for Novolog or Fiasp) Blue subcutaneous) blood-glucose meter,continuous #1 ea 07/18/23
--- NOTE | 2023-08-30 10:25 | WPDHPUPDATE1 ---
History and Physical Update Update Date/Time: 08/30/23 10:25 History and Physical has been reviewed, including an updated exam of the patient. There are NO changes in the patient's condition. Risks, benefits, and alternatives have been discussed and questions answered. Patient agrees to proceed with procedure.
[2023-08-30 10:32] LABS: Partial Thromboplastin Time 36.5 Seconds (22.3-36.8)
[2023-08-30 10:36] LABS: Glucose Point of Care 158 mg/dl (65-105)
--- NOTE | 2023-08-30 10:41 | WPDANESEPPF ---
Anes - Initial Pre Proc Eval Procedure: Operation Date: 08/30/23 12:00 Proposed Procedures p Laparoscopic Left Inguinal Hernia Repair and Recurrent Right Inguinal Hernia Repair with Mesh, Davinci Assisted - Kevin Daniel DO Date/Time: 08/30/23 10:41 Surgeon: Kevin Daniel DO Pre Op Diagnosis: Lt Ing Hernia, Recurrent Right Ing Hernia Patient Data Age: 62 Gender: M Height: 1.77 m Weight: 64 kg Allergies Allergy/AdvReac Type Severity Reaction Status Date / Time morphine Allergy Mild Rash Verified 08/22/23 11:11 codeine Allergy Unknown Nausea and Verified 08/22/23 11:11 Vomiting Home Medications Medication Instructions Recorded Confirmed Type pen needle, diabetic 31 gauge x #500 ea 06/08/20 08/18/23 Rx 5/16 oxycodone 5 mg capsule 5 mg PO Q8H PRN Pain 07/07/21 08/22/23 History clopidogrel 75 mg tablet (Plavix) 75 mg PO DAILY 06/30/22 08/22/23 History glucagon 3 mg/actuation nasal spray 3 mg intranasal ONCE #2 ea 01/09/23 08/22/23 Rx pantoprazole 40 mg tablet,delayed 40 mg PO BID #180 tabs 01/19/23 08/22/23 Rx release insulin glargine 100 unit/mL (3 See Rx Instructions .Route 07/03/23 08/22/23 Rx mL) subcutaneous pen (Lantus .COMPLEX #18 mL Solostar U-100 Insulin) blood-glucose sensor (Dexcom G7 #9 ea 07/17/23 08/18/23 Rx Sensor device) insulin aspart U-100 100 unit/mL 15 unit (0.15 mL) subcut TID #45 mL 07/17/23 08/22/23 Rx subcutaneous cartridge (Novolog PenFill U-100 Insulin aspart) insulin pen,reusable,BT,aspart #1 ea 07/17/23 08/18/23 Rx (InPen (for Novolog or Fiasp) Blue subcutaneous) blood-glucose meter,continuous #1 ea 07/18/23 08/18/23 Rx (Dexcom G7 Dressing Room Porter) Laboratory Tests 08/30/23 08/30/23 10:16 10:29 APTT 36.5 Seconds (22.3-36.8) POC Capillary Glucose 158 H mg/dl (65-105) Patient hx anesthesia problems: none Family hx anesthesia problems: none Results Review: All pre-operative results and documents have been reviewed as part of the pre-operative evaluation. [facility] Past Medical History Medical History Acquired cataract Soria's esophagus Chest mass Chronic, continuous use of opioids PO dilaudid Diabetic gastroparesis Dysphagia GERD (gastroesophageal reflux disease) History of heart attack 2004 Neuropathy PAD (peripheral artery disease) Peripheral vascular disease Tobacco abuse Type 1 diabetes mellitus with diabetic polyneuropathy, with long-term current use of insulin Surgical History Surgical History H/O heart artery stent 2004 History of eye surgery right eye for broken blood vessels History of hernia repair as a baby Family History Family History Father Diabetes mellitus Other Family history of arthritis Family history of congestive heart failure Social History Social History Smoking packs per day: 1 Smoking cigarettes per day: 20.0 Years smoked: 50 Smoking pack-years: 50.00 Smoking status: Current every day smoker Tobacco type: cigarettes Additional smoking assessment comments: 1 pack or more per day Alcohol intake: never Substance use: current Substance use type: marijuana Do You Feel Safe in your Home?: Yes Lack of Transportation: No Lack of Food: Sometimes True Current Housing: I Have Housing Concerned About Future Housing: No Difficulty Paying Gas/Electric Bills: YES Difficulty Paying for Meds: No Currently Unemployed: No Education: High School Diploma/GED Difficulty w/ Childcare or Family Care: No Living arrangements: alone Occupation/Education: unemployed Gender identity (if verbalized by the patient): Male Spiritual care concerns: No Anes - Eval Final PreProcedure Day of Procedure
[2023-08-30] MEDS: ceFAZolin 2 GM/D5W 50 ML 2 GM/50 ML BAG IVPB (10:52)
[2023-08-30] MEDS: BUPIVACAINE/EPINEPHRINE 0.5% 50 ML VIAL 30 ML INFILTRATE (11:30)
[2023-08-30] MEDS: LACTATED RINGERS 1,000 ML 30 ML IV CONT ×3 (12:27→15:09)
--- NOTE | 2023-08-30 12:32 | W.PM.PROC2 ---
Procedure Note - Detailed Date of Procedure 08/30/23 Pre-op Diagnosis Recurrent right inguinal hernia, left inguinal hernia Post-op Diagnosis Same Procedure Performed Laparoscopic recurrent right inguinal hernia and left inguinal hernia repair with mesh, da Kirill assisted Surgeon Kevin Daniel, Anesthesia General and Local (0.5% bupivacaine with epinephrine) Indications this is a 62-year-old man who presented with bilateral inguinal hernias. He was experiencing left groin pain and a bulge that started about 6 months ago. The patient has been vomiting a lot secondary to diabetic gastroparesis. He thinks this contributed to the hernia formation. He was not having many symptoms on the right however on exam he was found to have a moderate-sized left inguinal hernia and a small right inguinal hernia. He did have a history of a right inguinal hernia repair as a child. Discussions were made with the patient about treatment options and decision was made to proceed with robotic assisted laparoscopic recurrent right inguinal hernia repair and left inguinal hernia repair with mesh. Findings Recurrent right inguinal hernia repair and left inguinal hernia repair was performed. Upon inspecting the abdominal cavity laparoscopically, the patient was found have a recurrent direct right inguinal hernia and a direct left inguinal hernia. A robotic transabdominal preperitoneal approach was utilized for repair. Once a wide enough preperitoneal pocket was created on each side and the hernia sacs were completely reduced, I then placed large 3DMax mid mesh overlying each myopectineal orifice. No specimens were obtained for pathology. Description of Procedure Procedure as well as risks, benefits, and alternatives were discussed with the patient. Written consent was obtained and placed in chart prior to procedure. Patient was brought back to surgical suite. He was placed supine on operating table. Time-out was done to confirm patient and procedure. he was then intubated by Anesthesia Department. his abdomen was prepped and draped in sterile fashion using chlorhexidine prep. 0.5% bupivacaine with epinephrine was infiltrated at each location for incision. An 8 mm incision was made in the left lateral abdomen, and a 5 mm Optiview trocar was advanced through the abdominal layers under direct visualization. Once inside the abdominal cavity, carbon dioxide insufflation was used to create a pneumoperitoneum. A camera was inserted and the abdominal cavity was inspected. The patient was placed in slight Trendelenburg position. An 8 millimeter incision was made on the right lateral abdomen and an 8 millimeter trocar was inserted under direct visualization. Another 8 millimeter incision was made just superior to the umbilicus and an 8 millimeter trocar was inserted under direct visualization. The 5 mm port was then removed and this was replaced with another 8 mm robotic port. The robotic arms were brought up to the patient's bedside and secured to the ports. The camera and instruments were inserted. I then moved over to the robotic console and took control of the camera and instruments. After careful inspection of the abdominal cavity, I began scoring the peritoneum along the left lower quadrant using scissors with electrocautery. The preperitoneal plane was entered and this was carefully dissected caudally along the inferior epigastric vessels. Careful dissection with scissors with electrocautery and blunt dissection was used to continue this dissection. I dissected far enough laterally to allow for mesh placement, and also dissected medially to identify the pubic arch and Thierno's ligament. The hernia sac was identified and carefully dissected posteriorly. The cord contents were also identified and the peritoneum was carefully dissected far enough posteriorly to allow for mesh placement. Once an adequate pocket was created, I then placed the mesh within the preper
[2023-08-30] MEDS: ONDANSETRON INJ 4 MG/2 ML VIAL IV PUSH ×2 (12:41→17:17)
[2023-08-30] MEDS: diphenhydrAMINE HCl INJ 50 MG/ML VIAL 12.5 MG IV PUSH ×2 (12:50→13:27)
[2023-08-30] MEDS: SCOPOLAMINE 1 MG PATCH 1 PATCH TRANSDERM (12:52)
[2023-08-30 13:07] LABS: Glucose Point of Care 186 mg/dl (65-105)
[2023-08-30] MEDS: HALOPERIDOL LACTATE 5 MG/ML VIAL IV PUSH ×2 (13:35→13:51)
--- NOTE | 2023-08-30 13:53 | SUR.PHASEI ---
STRAIGHT CATHETERIZED WITH FR.#15 CATHETER.
[2023-08-30] MEDS: hydrALAZINE HCL 20 MG/ML VIAL 5 MG IV PUSH ×2 (14:32→14:57)
--- NOTE | 2023-08-30 14:59 | SUR.PHASEI ---
DR. CRUZ CAME TO SEE PATIENT. DR. NUNEZ AWARE OF PATIENT'S PERSISTENT N/V. MURALI, PACU HEATING ELEMENT REPAIRER AWARE OF POSSIBLE ADMISSION.
--- NOTE | 2023-08-30 16:09 | SUR.PHASEI ---
SISTER AWARE OF ADMISSION.
--- NOTE | 2023-08-30 17:02 | ADMGEN ---
This patient, Temo Devine, was admitted to Medical Room 260-01. Patient/family oriented to hospital policies and general routines including ID bracelet, bed and alarms, visiting hours, pain management, procedures, bathroom and other care routines, personal items, smoking policy, room service/diet, and visiting hours. Information on how to activate the Rapid Response Team has been discussed. Patient/Family are encouraged to report perceived risks to care and to ask questions if they do not understand what they are told or what they should do.
[2023-08-30] MEDS: LACTATED RINGERS 1,000 ML 100 ML IV CONT (17:20)
[2023-08-30 17:24] LABS: Glucose Point of Care 287 mg/dl (65-105)
[2023-08-30] MEDS: INSULIN ASPART (*BKC) 100 UNITS/ML 7 UNITS SUB-Q (17:39)
[2023-08-30 20:04] LABS: Glucose Point of Care 240 mg/dl (65-105)
[2023-08-31] MEDS: ONDANSETRON INJ 4 MG/2 ML VIAL IV PUSH ×2 (00:48→04:11)
[2023-08-31] MEDS: PANTOPRAZOLE 40 MG TABLET PO (04:12)
[2023-08-31] MEDS: HYDROmorphone HCL INJ (*CRX) 1 MG/ML SYR IV PUSH ×2 (04:15→08:34)
[2023-08-31 04:25] VITALS: BP 161/70; PULSE 95; RESP 18; TEMP 37.1; O2SAT 96
[2023-08-31 05:47] LABS: Hematocrit 40.2 % (42.0-52.0); Hemoglobin 13.1 g/dL (14.0-18.0); Mean Corpuscular HGB Conc 32.6 g/dl (32-36); Mean Corpuscular Hemoglobin 31.4 pg (26-34); Mean Corpuscular Volume 96.4 fl (80-100); Mean Platelet Volume 11.7 fl (7.4-10.4); Platelet Count Result 310 k/mm3 (150-375); Red Blood Count 4.17 M/mm3 (4.6-6.20); Red Cell Distribution Width 14.6 % (11.5-14.5); White Blood Count 21.4 K/mm3 (4.5-10.0)
[2023-08-31 05:57] LABS: Anion Gap 8 mmol/L (4-12); Blood Urea Nitrogen 30 mg/dL (9-20); Calcium 8.3 mg/dL (8.4-10.2); Carbon Dioxide 25 mmol/L (22-30); Chloride 101 mmol/L (98-107); Estimated CRCL calculation 52 ml/min; Estimated Glomerular Filt Rate > 60; Glucose 284 mg/dL (65-110); Potassium 4.1 mmol/L (3.4-5.0); Sodium 134 mmol/L (137-145)
[2023-08-31 08:13] VITALS: BP 146/58; PULSE 94; RESP 16; TEMP 37.2; O2SAT 96
[2023-08-31 08:20] LABS: Glucose Point of Care 363 mg/dl (65-105)
--- NOTE | 2023-08-31 08:35 | WPDANESPN ---
Anes - Prog Note Post-Op Date/Time: 08/31/23 08:35 Cardiovascular status: normal Respiratory status: normal Airway patency: baseline Mental status: baseline Post-Op hydration status: normal Vital Signs: Last Vital Signs Temp 37.2 C 08/31/23 08:13 Pulse 94 08/31/23 08:13 Resp 16 08/31/23 08:13 BP 146/58 H 08/31/23 08:13 Pulse Ox 96 08/31/23 08:13 O2 Del Method Room Air 08/30/23 19:36 O2 Flow Rate 2 08/30/23 15:35 Pain Score (VAS): Patient asleep. No nonverbal signs of pain present at this time. I/O: Intake & Output 08/30/23 08/31/23 08/31/23 23:59 07:59 15:59 Output Total 300 500 Balance -300 -500 Laboratory Tests 08/31/23 05:09 08/31/23 05:09 08/30/23 08/30/23 08/30/23 10:16 10:29 13:04 WBC RBC Hgb Hct MCV MCH MCHC RDW Plt Count MPV APTT 36.5 Sodium Potassium Chloride Carbon Dioxide Anion Gap BUN Creatinine Estim Creat Clear Calc Estimated GFR Glucose POC Capillary Glucose 158 H 186 H Calcium 08/30/23 08/30/23 08/31/23 17:18 19:58 05:09 WBC 21.4 H RBC 4.17 L Hgb 13.1 L Hct 40.2 L MCV 96.4 MCH 31.4 MCHC 32.6 RDW 14.6 H Plt Count 310 MPV 11.7 H APTT Sodium 134 L Potassium 4.1 Chloride 101 Carbon Dioxide 25 Anion Gap 8 BUN 30 H Creatinine 1.20 Estim Creat Clear Calc 52 Estimated GFR > 60 Glucose 284 H POC Capillary Glucose 287 H 240 H Calcium 8.3 L 08/31/23 08:15 WBC RBC Hgb Hct MCV MCH MCHC RDW Plt Count MPV APTT Sodium Potassium Chloride Carbon Dioxide Anion Gap BUN Creatinine Estim Creat Clear Calc Estimated GFR Glucose POC Capillary Glucose 363 H Calcium Post-procedural complaints: none Patient Feedback: Patient satisfied with anesthetic care.
[2023-08-31] MEDS: INSULIN ASPART (*BKC) 100 UNITS/ML 7 UNITS SUB-Q ×2 (08:49→12:15)
[2023-08-31] MEDS: INSULIN GLARGINE (*BKC) 100 UNITS/ML 15 UNITS SUB-Q (08:50)
[2023-08-31 12:00] VITALS: BP 143/50; PULSE 84; RESP 18; TEMP 37.2; O2SAT 98
[2023-08-31 12:01] LABS: Glucose Point of Care 317 mg/dl (65-105)
--- NOTE | 2023-08-31 12:18 | PM.DS ---
DS: Admitting Diagnosis Discharge Date 08/31/2023 Admitting Diagnosis Recurrent right inguinal hernia, left inguinal hernia, intractable postop nausea and vomiting, insulin-dependent diabetes, tobacco use DS: Discharge Diagnosis Discharge Diagnosis (1) Postoperative nausea and vomiting: Code(s): R11.2 - Nausea with vomiting, unspecified; Z98.890 - Other specified postprocedural states Status: Acute (2) Recurrent right inguinal hernia: Code(s): K40.91 - Unilateral inguinal hernia, without obstruction or gangrene, recurrent Status: Acute (3) Left inguinal hernia: Code(s): K40.90 - Unilateral inguinal hernia, without obstruction or gangrene, not specified as recurrent Status: Acute (4) Type 1 diabetes mellitus with diabetic polyneuropathy, with long-term current use of insulin: Code(s): E10.42 - Type 1 diabetes mellitus with diabetic polyneuropathy Status: Acute (5) Tobacco abuse: Code(s): Z72.0 - Tobacco use Status: Acute DS: Summary Hospital Course Reason for hospitalization: Postoperative nausea and vomiting Hospital Course: This is a 62-year-old man who underwent robotic assisted laparoscopic recurrent right inguinal hernia repair and left inguinal hernia repair with mesh on 08/30/2023. Surgery was uncomplicated, but patient had severe postoperative nausea and vomiting that was uncontrolled despite maximum doses of antiemetics. The patient has a prior history of nausea and vomiting with any type of procedure or anesthesia. He also has chronic narcotic dependence and was requiring higher doses of postoperative pain meds. This was likely contributing to some of the postoperative nausea and vomiting. He was admitted for outpatient extended recovery and was placed on IV fluids to help with the nausea and vomiting. His diet was gradually advanced as tolerated. On postop day 1 his nausea did seem to improve. His pain was well controlled and he was tolerating his diet. He was discharged 08/31/2023. Time spent discussing smoking cessation with patient: 3 to 10 minutes Status at Discharge Functional status at discharge: independent ambulation Overall status at discharge: patient is progressing back to baseline Time Spent with Patient Time attestation: Total time spent providing and/or coordinating discharge services: Time spent: Less than 30 minutes Exam Const: General: comfortable and no acute distress Resp: Effort & Inspection: normal respiratory effort Auscultation: clear to auscultation bilaterally Cardio: Rate: regular rate Rhythm: regular rhythm GI: Inspection: incision (Intact with glue) GI Palp: No abdominal tenderness and Yes Soft to palpation Auscultation: normal bowel sounds : Scrotum: no inguinal hernias DS: Data Data Completed and Pending Labs on day of discharge: Labs from last 24 hours 08/31/23 08/31/23 08/31/23 11:53 08:15 05:09 WBC 21.4 H RBC 4.17 L Hgb 13.1 L Hct 40.2 L MCV 96.4 MCH 31.4 MCHC 32.6 RDW 14.6 H Plt Count 310 MPV 11.7 H Sodium 134 L Potassium 4.1 Chloride 101 Carbon Dioxide 25 Anion Gap 8 BUN 30 H Creatinine 1.20 Estim Creat Clear Calc 52 Estimated GFR > 60 Glucose 284 H POC Capillary Glucose 317 H 363 H Calcium 8.3 L 08/30/23 08/30/23 08/30/23 19:58 17:18 13:04 WBC RBC Hgb Hct MCV MCH MCHC RDW Plt Count MPV Sodium Potassium Chloride Carbon Dioxide Anion Gap BUN Creatinine Estim Creat Clear Calc Estimated GFR Glucose POC Capillary Glucose 240 H 287 H 186 H Calcium Discharge Plan Discharge Patient Disposition: Home, Self-Care Discharge Instructions: DISCHARGE INSTRUCTION SHEET FOR HERNIA, GALLBLADDER AND APPENDIX SURGERIES DR. NUNEZ PATIENT TO TAKE HOME 1. May shower, no soaking in bath x 2weeks. 2. Call office for: Wound i
[2023-08-31] MEDS: oxyCODONE HCL (*CRX) 5 MG TAB IR 10 MG PO (12:23)
--- NOTE | 2023-08-31 12:57 | PC.NURSE ---
On 08/31/23, the student, [Robina Weathers], provided care and completed [facility] documentation on this patient. I have reviewed the student's documentation and agree with the findings.
== END 2023-08-31 13:20 | disposition home or self-care (01) ==
LOC: ANHSURGERY 13:15 → ANH2MED 17:00
PROVIDERS: Anesthesiology; PCP Student in an Organized Health Care Education/Training Program; Visit Provider Surgery
PROC: 8E0Y4CZ Robotic Assisted Procedure of Lower Extremity, Percutaneous Endoscopic Approach (ICD-10-PCS; CPT 49650; principal; 2023-08-30 12:00)
DX: K40.90 Unilateral inguinal hernia, without obstruction or gangrene, not specified as recurrent (principal); K40.91 Unilateral inguinal hernia, without obstruction or gangrene, recurrent; K22.70 Barrett's esophagus without dysplasia; E10.43 Type 1 diabetes mellitus with diabetic autonomic (poly)neuropathy; K31.84 Gastroparesis; I25.2 Old myocardial infarction; R13.10 Dysphagia, unspecified; K21.9 Gastro-esophageal reflux disease without esophagitis; I73.9 Peripheral vascular disease, unspecified; F17.210 Nicotine dependence, cigarettes, uncomplicated; F12.90 Cannabis use, unspecified, uncomplicated; Z79.891 Long term (current) use of opiate analgesic; Z79.02 Long term (current) use of antithrombotics/antiplatelets; Z79.4 Long term (current) use of insulin; Z98.890 Other specified postprocedural states; Z95.5 Presence of coronary angioplasty implant and graft; Z82.49 Family history of ischemic heart disease and other diseases of the circulatory system
CPT/HCPCS: 49651; 49650; S2900; 36415; 71271; 80048; 82948; 85027; 85610; 85730; 86850; 86900; 86901; 93005; A9270; C1781; J0360; J0690; J1100; J1170; J1200; J1630; J1815; J1885; J2250; J2405; J2704; J3010; J7120